=== PATIENT | male | born 1965 | race Caucasian/White ===

== ENCOUNTER → 2017-03-07 | Outpatient (CLI) | payer OTHER, MEDICARE ==
[~2017-03-07] MED LIST: /CLON1TA OR; /VERA40TA PO; ACET500C OR; ACET500T PO; AMIT10TA2; ARTHROTEC; BACL10TA2 PO; CEPH500T OR; FIORICET OR; FLECTOR PATCH; FLEXERIL OR; GABA300C2 PO; HYDROCODONE OR; IBUP200C PO; IBUP600T OR; LYRI150C; LYRI200C; MORP15TA2 PO; MORPHINE SULFATE IR PO; NEUR300C OR; NEXI20CA OR; OXYC40TA13 PO; OXYCONTIN PO; PERC5TAB8; PRAV20TA2 OR; SOMA350T; SOMA350T OR; TOPA25TA PO; TRAM50TA2 OR; VICO5TAB; VICODINES TAB OR; XANA0.5T PO
--- NOTE | 2017-03-22 00:31 | ECWPNPC ---
PATIENT NAME: LESLIE WEST : 1965 GENDER: MALE VISIT DATE: 03/07/2017 DISCHARGE DATE: 03/07/17 1508 VISIT LOCKED DATE TIME: PHYSICIAN: TASHA TUCKER RESOURCE: TASHA TUCKER REASON FOR APPOINTMENT 1. MEDS HISTORY OF PRESENT ILLNESS HISTORY OF PRESENT ILLNESS: PAIN THE PATIENT DESCRIBES THE PAIN... FALL RISK SCREENING: SCREENING :NO FALLS IN THE PAST YEAR TODAY'S VISIT: NOTES: RATES PAIN TODAY 09/02. STATES IS NOT ABLE TO DO ANYTHING. CAN NOT FIND ANY POSITION OF COMFORT. CAN NOT SIT ON TOILET WITHOUT EXTREME SPINE PAIN. PAIN SHOOTS DOWN BOTH LEGS. HAS MOVED INTO [employer] BUT ALL SERVICES ARE DOWN A LONG ESCOBAR. WOULD LIKE TO EXPLORE OPTION FOR POWER SCOOTER FOR MOBILITY. IS FALLING 2-3 TIMES PER MONTH BECAUSE LEGS ARE GIVING OUT. LEGS ARE NUMB, COLD FROM WAIST DOWN. . CURRENT MEDICATIONS TAKING MORPHINE SULFATE 15 MG TABLET 1 TABLET ORALLY EVERY 6-8 HRS PRN PAIN MDD=3 TAKING OXYCODONE HCL ER 30 MG TABLET ER 12 HOUR ABUSE-DETERRENT 1 TABLET ORALLY EVERY 12 HRS MDD =2 CHRONIC PAIN NOT-TAKING OXYCODONE HCL ER 20 MG TABLET ER 12 HOUR ABUSE-DETERRENT 1 TABLET ORALLY EVERY 12 HRS MDD=2 NOT-TAKING MORPHINE SULFATE 15 MG TABLET 1 TAB ORAL EVERY 8 HOURS PRN PAIN MDD=2 MEDICATION LIST REVIEWED AND RECONCILED WITH THE PATIENT PAST MEDICAL HISTORY CHRONIC NECK AND BACK - FOLLOWS WITH PAIN CLINIC ? POSSIBLE MELANOMA POSTERIOR SCALP/NECK IN ?2013 - DR ESCOBAR IN [place]. EXCISED. PT REFUSED FURTHER ADVISED SURGERY AND CHEMO AND RADIATION HTN SMOKER ANXIETY/DEPRESSION LIPOMA - POSTERIOR SCALP/NECK 2013 - DR PERAZA ALLERGIES N.K.D.A. SOCIAL HISTORY GENERAL: PAIN CLINIC PFS, CLERGY, PUBLIC HEALTH REFERRALS CLERGY REFERRAL NEEDED?NO WAS THE PROVIDER NOTIFIED OF ANY PERTINENT INFO?NO PFS REFERRAL NEEDED?NO PUBLIC HEALTH REFERRAL NEEDED?NO PATIENT: ____. REVIEW OF SYSTEMS CONSTITUTIONAL: ANY CHANGE IN YOUR MEDICAL CONDITION? NO . CHILLS NO . FEVER NO . INFECTION: DO YOU HAVE NEW INFECTIONS? NO . DO YOU HAVE HISTORY OF MRSA? NO . MUSCULOSKELETAL: ANY NEW PATTERNS OF PAIN OR NUMBNESS? NO . GASTROENTEROLOGY: ANY NEW CHANGE IN BOWEL CONTROL? NO . GENITOURINARY: ANY NEW CHANGE IN BLADDER CONTROL? NO . IS THERE A CHANCE YOU COULD BE ? NO . HEMATOLOGY/LYMPH: DO YOU TAKE ANY BLOOD THINNERS? (FOR EXAMPLE- COUMADIN, PLAVIX, AGGRENOX, PLATEL, PRADAXA, OR XARELTO) NO . WHEN WAS YOUR LAST DOSE? DATE: TIME: . NEUROLOGY: HAVE YOU FALLEN IN THE PAST 6 MONTHS? YES, 1 WEEK AGO LEGS GIVE OUT. NOT ANY WORSE THAN HE ALREADY IS . ANY NEW EXTREMITY NUMBNESS OR WEAKNESS? NO . CARDIOLOGY: DO YOU HAVE A PACEMAKER OR DEFIBRILLATOR? NO . RESPIRATORY: HAVE YOU BEEN SICK IN THE PAST WEEK? NO . FEVER NO . FLU LIKE SYMPTOMS? NO . COUGH NO . INTEGUMENTARY: DO YOU HAVE ANY RASHES OR OPEN SORES? NO . ALLERGIC/IMMUNO: ARE YOU ALLERGIC TO SHELLFISH OR IV DYE? NO . ANY NEW ALLERGIES? NO . PSYCHIATRIC: DO YOU HAVE THOUGHTS OF HURTING YOURSELF OR SOMEONE ELSE? NO . ARE YOU ABUSED, NEGLECTED, OR IN AN UNSAFE ENVIRONMENT? NO . ENDOCRINOLOGY: ARE YOU DIABETIC? NO . OTHER: DO YOU NEED ANY PRESCRIPTIONS? YES . IF YES, PLEASE LIST: ____ . ANY NEW PROBLEMS WITH YOUR MEDICATIONS? NO . WHEN DID YOU LAST EAT? ____ . WHEN DID YOU LAST DRINK? ____ . WHAT DID YOU LAST DRINK? ____ . NAME OF PERSON DRIVING YOU HOME? ____ . DO YOU HAVE ANY OTHER QUESTIONS OR CONCERNS NO . REVIEWED BY: PROVIDER: TASHA MULTANI . VITAL SIGNS WT 140 LBS, HT 71 IN, BMI 19.52 INDEX, BP 120/80 MANUAL, HR 119 /MIN, RR 16 /MIN, TEMP 99.3 F, OXYGEN SAT % 95%, NA INITIALS AW 1357, REVIEWED BY: NL. EXAMINATION GENERAL EXAMINATION: GENERAL APPEARANCE:COLOR PINK - WARM AND DRY SKIN. PSYCHALERT , ORIENTED X 3 , APPROPRIATE MOOD AND AFFECT . LUNGS:CLEAR TO AUSCULTATION BILATERALLY. HEART:HEART RATE REGULAR. MUSCULOSKELETAL:GENERALIZED WEAKNESS IN BOTH LOWER EXTREMITIES. POINT TENDERNESS OVER LUMBAR SPINOUS PROCESSES AND OVER BILATERAL SIJ REGIONS. GAIT ANTALGIC, SLOW. LOFSTRAND CRUTCHES USED FOR BALANCE. ASSESSMENTS LUMBAR POST-LAMINECTOMY SYNDROME - M96.1 (PRIMARY) LUMBAR RADICULOPATHY - M54.16 CHRONIC PRESCRIPTION OPIATE USE - Z79.891 TREATMENT LUMBAR POST-LAMINECTOMY SYNDROME NOTES: UTOX TODAY. NEED TO WORK ON AUTH FROM FOR MRI. CLINICAL NOTES: ISTOP REGISTRY REVIEWED AND DEMNOSTRATES COMPLLIANCE. BRINGS IN MEDICATIONS WHICH IS APPROPRIATE FOR WHAT WAS DISPENSED. RECENT URINE TOXICOLOGY REVIEWED. NO UNAUTHORIZED MEDICATIONS. NO ILLICIT SUBSTANCES AND PRESCRIBED MEDICATIONS WERE PRESENT. DISCUSSION HELD WITH PATIENT REGARDING FUTURE PLANS. PT IS VERY FEARFUL OF ANY INTERVENTIONAL TREATMENT. DISCUSSED OPTION OF DORSAL COLUMN STIMULATOR BUT PATIENT IS ALSO VERY FEARFUL OF THIS OPTION. PROCEDURES PN WORKMANS' COMP OPINION IN YOUR OPINION, WAS THE INCIDENT THAT THE PATIENT DESCRIBED THE COMPETENT MEDICAL CAUSE OF THIS INJURY/ILLNESS? YES ARE THE PATIENT'S COMPLAINTS CONSISTENT WITH HIS/HER HISTORY OF THE INJURY/ILLNESS? YES IS THE PATIENT'S HISTORY OF THE INJURY/ILLNESS CONSISTENT WITH YOUR OBJECTIVE FINDING? YES WHAT IS THE PERCENTAGE OF TEMPORARY IMPAIRMENT? TOTAL = 100% IS THE PATIENT WORKING? NO DOCTOR ON SITE: SUSIE AVILEZ MD PROCEDURE CODES FA211 ESTABILISHED PATIENT [facility] FACILITY CHARGE DISPOSITION & COMMUNICATION FOLLOW UP 2 MONTHS - WITH DR WILSON ELECTRONICALLY SIGNED BY DHRUV LIN ON 03/21/2017 AT 01:15 PM EDT DISCLAIMER : THIS IS A VISIT SUMMARY EXTRACTED FROM THE [employer] CHART. IT IS NOT A COPY OF THE [employer] PROGRESS NOTE. MCKENZIE
== END ==
LOC: M PAIN 14:00
PROVIDERS: ATTEND Nurse Practitioner Family
DX: M96.1 Postlaminectomy syndrome, not elsewhere classified (principal); M54.16 Radiculopathy, lumbar region; G89.29 Other chronic pain; R26.9 Unspecified abnormalities of gait and mobility; Z79.891 Long term (current) use of opiate analgesic

== ENCOUNTER → 2017-05-29 | Outpatient (CLI) | payer OTHER, MEDICARE ==
[~2017-05-29] MED LIST changes: -IBUP200C PO; +IBUP200C10 PO; -OXYC40TA13 PO; +OXYC40TA29 PO
--- NOTE | 2017-06-10 00:56 | ECWPNPC ---
PATIENT NAME: LESLIE WEST : 1965 GENDER: MALE VISIT DATE: 05/29/2017 DISCHARGE DATE: 05/29/17 1558 VISIT LOCKED DATE TIME: PHYSICIAN: SUSIE WILSON RESOURCE: SUSIE WILSON REASON FOR APPOINTMENT 1. W/C LOW BACK PAIN HISTORY OF PRESENT ILLNESS HISTORY OF PRESENT ILLNESS: PAIN THE PATIENT DESCRIBES THE PAIN... 51 YEAR OLD MALE PATIENT WITH HISTORY OF CHRONIC LOW BACK PAIN. PATIENT DESCRIBES THE PAIN ACHING, BURNING, SHARP, STABBING, TENDER, THROBBING, SORE, SHOOTING, AND HAVING IT ALL THE TIME WITH A PAIN SCORE OF 10/10. PATIENT WAS HURT IN A WORK RELATED INJURY ON 05/28/2007 WHILE WORKING AT [employer] WHEN HE FELL DOWN STAIRS. PATIENT REPORTS PHYSICAL THERAPY NOT AIDING IN PAIN RELIEF. MR. WEST REPORTS ONE BACK SURGERY IN 2007. CURRENTLY THE PATIENT IS USING OXYCODONE AND MORPHINE AND REPORTS THAT THE MEDICATIONS KEEP HIM MOBILE AND FUNCTIONAL. PATIENT STATES THAT IT IS VERY DIFFICULT FOR HIM TO DO EVERYDAY ACTIVITIES DUE TO THE PAIN. PATIENT DENIES UNEXPLAINABLE WEIGHT LOSS, FEVER, CHILLS, NEW CHANGES ON HIS URINARY OR BOWEL CONTROL. FALL RISK SCREENING: SCREENING :NO FALLS IN THE PAST YEAR CURRENT MEDICATIONS TAKING OXYCODONE HCL ER 30 MG TABLET ER 12 HOUR ABUSE-DETERRENT 1 TABLET ORALLY EVERY 12 HRS MDD =2 CHRONIC PAIN TAKING MORPHINE SULFATE 15 MG TABLET 1 TABLET ORALLY EVERY 6-8 HRS PRN PAIN MDD=3 TAKING ACETAMINOPHEN EXTRA STRENGTH 500 MG TABLET 2 TABLETS NEEDED ORALLY EVERY 6 HRS NOT-TAKING OXYCODONE HCL ER 20 MG TABLET ER 12 HOUR ABUSE-DETERRENT 1 TABLET ORALLY EVERY 12 HRS MDD=2 NOT-TAKING MORPHINE SULFATE 15 MG TABLET 1 TAB ORAL EVERY 8 HOURS PRN PAIN MDD=2 MEDICATION LIST REVIEWED AND RECONCILED WITH THE PATIENT PAST MEDICAL HISTORY CHRONIC NECK AND BACK - FOLLOWS WITH PAIN CLINIC ? POSSIBLE MELANOMA POSTERIOR SCALP/NECK IN ?2014 - DR ESCOBAR IN [place]. EXCISED. PT REFUSED FURTHER ADVISED SURGERY AND CHEMO AND RADIATION HTN SMOKER ANXIETY/DEPRESSION LIPOMA - POSTERIOR SCALP/NECK 2014 - DR PERAZA ALLERGIES N.K.D.A. REVIEW OF SYSTEMS REVIEWED BY: PROVIDER: SUSIE WILSON MD . CONSTITUTIONAL: ANY CHANGE IN YOUR MEDICAL CONDITION? NO . CHILLS NO . FEVER NO . INFECTION: DO YOU HAVE NEW INFECTIONS? NO . DO YOU HAVE HISTORY OF MRSA? NO . MUSCULOSKELETAL: ANY NEW PATTERNS OF PAIN OR NUMBNESS? NO . GASTROENTEROLOGY: ANY NEW CHANGE IN BOWEL CONTROL? NO . GENITOURINARY: ANY NEW CHANGE IN BLADDER CONTROL? NO . IS THERE A CHANCE YOU COULD BE ? NO . HEMATOLOGY/LYMPH: DO YOU TAKE ANY BLOOD THINNERS? (FOR EXAMPLE- COUMADIN, PLAVIX, AGGRENOX, PLATEL, PRADAXA, OR XARELTO) NO . WHEN WAS YOUR LAST DOSE? DATE: TIME: . NEUROLOGY: HAVE YOU FALLEN IN THE PAST 6 MONTHS? YES . ANY NEW EXTREMITY NUMBNESS OR WEAKNESS? NO . CARDIOLOGY: DO YOU HAVE A PACEMAKER OR DEFIBRILLATOR? NO . RESPIRATORY: HAVE YOU BEEN SICK IN THE PAST WEEK? NO . FEVER NO . FLU LIKE SYMPTOMS? NO . COUGH NO . INTEGUMENTARY: DO YOU HAVE ANY RASHES OR OPEN SORES? NO . ALLERGIC/IMMUNO: ARE YOU ALLERGIC TO SHELLFISH OR IV DYE? NO . ANY NEW ALLERGIES? NO . PSYCHIATRIC: DO YOU HAVE THOUGHTS OF HURTING YOURSELF OR SOMEONE ELSE? NO . ARE YOU ABUSED, NEGLECTED, OR IN AN UNSAFE ENVIRONMENT? NO . ENDOCRINOLOGY: ARE YOU DIABETIC? NO . OTHER: DO YOU NEED ANY PRESCRIPTIONS? NO . IF YES, PLEASE LIST: ____ . ANY NEW PROBLEMS WITH YOUR MEDICATIONS? NO . WHEN DID YOU LAST EAT? ____ . WHEN DID YOU LAST DRINK? ____ . WHAT DID YOU LAST DRINK? ____ . NAME OF PERSON DRIVING YOU HOME? ____ . DO YOU HAVE ANY OTHER QUESTIONS OR CONCERNS NO . VITAL SIGNS WT 122.2 LBS, HT 71 IN, BMI 17.04 INDEX, BP 130/90 MANAUL, HR 82 /MIN, RR 16 /MIN, TEMP 97.5 F, OXYGEN SAT % 97, NA INITIALS SC 14:40, REVIEWED BY: CM. EXAMINATION : PATIENT IS ALERT O X 3 AND COOPERATIVE. USES WALKER TO AMBULATE. DIFFICULTIES STANDING, SITTING, AND LAYING DOWN. BOTH LEGS ARE VERY WEAK. MOVING INCREASES SPASTICITY IN THE LOWER BACK. ASSESSMENTS LUMBAR POST-LAMINECTOMY SYNDROME - M96.1 (PRIMARY) RADICULOPATHY, LUMBAR REGION - M54.16 TREATMENT LUMBAR POST-LAMINECTOMY SYNDROME REFILL OXYCODONE HCL ER TABLET ER 12 HOUR ABUSE-DETERRENT, 30 MG, 1 TABLET, ORALLY, EVERY 12 HRS MDD =2 CHRONIC PAIN, 30 DAY(S), 60, REFILLS 0 NOTES: WE DISCUSSED SEVERAL ISSUES WITH MR. WEST'S PAIN MANAGEMENT CASE. AT THIS TIME THE PATIENT WILL CONTINUE WITH THE SAME MEDICATION REGIME BEFORE. PATIENT IS USING THE OXYCODONE, MORPHINE AND ACETAMINOPHEN FOR THE SOMATIC PAIN. PATIENT DENIES ABUSE OF MEDICATION, DENIES USE OF ILLEGAL SUBSTANCES, AND STATES HE IS ONLY USING THE MEDICATION FOR PAIN MANAGEMENT. URINE TOXICOLOGY REPORT DONE ON 03/07/17 SHOWS CONSISTENT RESULTS WITH THE PATIENT'S MEDICATION LIST. PATIENT WAS REMINDED TO BRING ALL MEDICATIONS TO EACH VISIT. I WOULD LIKE THE PATIENT TO FIND A PRIMARY CARE DOCTOR TO DISCUSS THE POSSIBILITY OF A TUMOR IN THE PATIENTS NECK. INSTRUCTIONS WERE GIVEN, QUESTIONS WERE ANSWERED, PATIENT REPORTS UNDERSTANDING AND AGREES WITH THE PLAN. I, SANDRA WARREN, DOCUMENTED THE ABOVE INFORMATION ACTING A SCRIBE FOR DR. WILSON. I HAVE REVIEWED THE ABOVE DOCUMENT, WRITTEN BY SANDRA LEE AND I VERIFY THAT IT IS ACCURATE. OTHERS REFILL MORPHINE SULFATE TABLET, 15 MG, 1 TABLET, ORALLY, EVERY 6-8 HRS PRN PAIN MDD=3, 30 DAY(S), 60, REFILLS 0 REFILL ACETAMINOPHEN EXTRA STRENGTH TABLET, 500 MG, 2 TABLETS NEEDED, ORALLY FOR PAIN, EVERY 6 HRS MDD6, 30 DAY(S), 180, REFILLS 1 PROCEDURES PN WORKMANS' COMP OPINION IN YOUR OPINION, WAS THE INCIDENT THAT THE PATIENT DESCRIBED THE COMPETENT MEDICAL CAUSE OF THIS INJURY/ILLNESS? YES ARE THE PATIENT'S COMPLAINTS CONSISTENT WITH HIS/HER HISTORY OF THE INJURY/ILLNESS? YES IS THE PATIENT'S HISTORY OF THE INJURY/ILLNESS CONSISTENT WITH YOUR OBJECTIVE FINDING? YES WHAT IS THE PERCENTAGE OF TEMPORARY IMPAIRMENT? TOTAL = 100% IS THE PATIENT WORKING? NO DOCTOR ON SITE: SUSIE AVILEZ MD PROCEDURE CODES FA211 ESTABILISHED PATIENT [facility] FACILITY CHARGE G8427 DOC MEDS VERIFIED W/PT OR RE G8730 PAIN ASSESS POS TOOL F/U PLAN DOC DISPOSITION & COMMUNICATION FOLLOW UP 3 WEEKS ELECTRONICALLY SIGNED BY SUSIE WILSON MD ON 06/09/2017 AT 08:54 PM EDT DISCLAIMER : THIS IS A VISIT SUMMARY EXTRACTED FROM THE [employer] CHART. IT IS NOT A COPY OF THE [employer] PROGRESS NOTE. MTDD
== END ==
LOC: M PAIN 14:20
PROVIDERS: ATTEND Anesthesiology
DX: G89.29 Other chronic pain (principal); M96.1 Postlaminectomy syndrome, not elsewhere classified; M54.16 Radiculopathy, lumbar region; M54.2 Cervicalgia; Z79.891 Long term (current) use of opiate analgesic

== ENCOUNTER → 2017-10-20 | Outpatient (REF) ==
--- NOTE | 2017-10-20 14:36 | REP ---
PARTIAL LUMBAR SPINE, THREE VIEWS: HISTORY: Degenerative disc disease. COMPARISON: 07/03/2007. The patient is status post L5-S1 anterior and posterior spinal fusion and L4-5 laminectomy. Bone graft material is present anteriorly and metal rods and pedicle screws posteriorly. There is no acute fracture or subluxation. The intervertebral discs are decreased in height consistent with disc degeneration. Osteophytes are present on L1 and 2. IMPRESSION: The patient is status post L5-S1 anterior and posterior spinal fusion and L4-5 laminectomy. There is anatomic alignment of the lumbar spine. Signed by Tay Dickson MD 10/20/2017 02:39 P
== END ==
LOC: M SMT 13:04
PROVIDERS: ATTEND Internal Medicine
DX: M51.36 Other intervertebral disc degeneration, lumbar region (principal)

== ENCOUNTER → 2017-11-06 | Outpatient (CLI) | payer OTHER, MEDICARE | LOC: M PAIN 14:15 | DX: M96.1 Postlaminectomy syndrome, not elsewhere classified (principal); M54.16 Radiculopathy, lumbar region; Z79.891 Long term (current) use of opiate analgesic; I10 Essential (primary) hypertension; R26.9 Unspecified abnormalities of gait and mobility; Z79.899 Other long term (current) drug therapy; F17.210 Nicotine dependence, cigarettes, uncomplicated | CPT/HCPCS: G0463 ==

== ENCOUNTER 2017-11-21 11:11 | Emergency (ER) | payer MEDICARE, OTHER ==
[2017-11-21] MEDS: IPRATROPIUM 0.5MG/ALBUTEROL 2.5MG INH SOL UD 3ML (DUONEB)(J7620) NEB ×2 (11:54→12:04)
[2017-11-21 11:55] LABS: ABG BASE EXCESS -2.8 (-2.0-2.0); ABG HCO3 19.1 MEQ/L (22.0-26.0); ABG PARTIAL PRESSURE CO2 26.9 mmHg (35.0-45.0); ABG PARTIAL PRESSURE O2 96.2 mmHg (75.0-100.0); ABG STANDARD HCO3 22.2 MEQ/L (22.0-26.0); ABG TOTAL CO2 19.9 MEQ/L (22.0-29.0); ABG pH (ARTERIAL) 7.469 UNITS (7.350-7.450)
[2017-11-21 12:03] LABS: BASO % 0.3 % (0.0-1.0); EOS # 0.2 10^3/uL (0.0-0.50); EOS % 2.2 % (0.0-3.0); IMMATURE GRANULOCYTE % 0.5 % (0-0); LYMPH # 1.1 10^3/uL (1.5-4.5); LYMPH % 12.8 % (24.0-44.0); MEAN CORPUSCULAR HEMOGLOBIN 32.8 pg (27.0-33.0); MEAN CORPUSCULAR HGB CONC 34.7 g/dl (32.0-36.5); MEAN CORPUSCULAR VOLUME 94.6 fl (80.0-96.0); MONO # 0.4 10^3/uL (0.0-0.8); MONO % 4.7 % (0.0-5.0); NEUTROPHILS % 79.5 % (36.0-66.0); PLATELET COUNT, AUTOMATED 151 10^3/uL (150-450); RED CELL DISTRIBUTION WIDTH 13.2 % (11.5-14.5); WHITE BLOOD COUNT 8.8 10^3/uL (4.0-10.0)
[2017-11-21] MEDS: methylPREDNISolone INJ 125 MG/2 ML VIAL (J2930) IV (12:06)
[2017-11-21 12:17] LABS: INR 0.92
[2017-11-21 12:35] LABS: LACTIC ACID SEPSIS PROTOCOL 1.9 MMOL/L (0.4-2.0)
[2017-11-21 12:35] LABS: ANION GAP 11 MEQ/L (8-16); BLOOD UREA NITROGEN 10 MG/DL (7-18); CALCIUM LEVEL 8.8 MG/DL (8.5-10.1); CARBON DIOXIDE LEVEL 25 MEQ/L (21-32); CHLORIDE LEVEL 108 MEQ/L (98-107); CREATININE FOR GFR 0.93 MG/DL (0.70-1.30); GLOMERULAR FILTRATION RATE > 60.0 (>56); GLUCOSE, FASTING 95 MG/DL (70-105); POTASSIUM SERUM 3.8 MEQ/L (3.5-5.1); SODIUM LEVEL 144 MEQ/L (136-145)
[2017-11-21 12:38] LABS: ALBUMIN 3.3 GM/DL (3.2-5.2); ALKALINE PHOSPHATASE 54 U/L (45-117); ALT/SGPT 20 U/L (12-78); AST/SGOT 23 U/L (7-37); BILIRUBIN,DIRECT 0.2 MG/DL (0.0-0.2); BILIRUBIN,TOTAL 0.9 MG/DL (0.2-1.0); TOTAL PROTEIN 6.3 GM/DL (6.4-8.2)
[2017-11-21] MEDS ORDERED: ISOVUE-370 76% 100ML VIAL (Q9967) As Ordered (13:16)
[2017-11-21] MEDS: PERCOCET 5MG/325MG TAB PO (14:30)
== END 2017-11-21 15:30 | disposition home or self-care (01) ==
LOC: M ED 11:11
DX: J44.9 Chronic obstructive pulmonary disease, unspecified (principal); J40 Bronchitis, not specified as acute or chronic; R26.9 Unspecified abnormalities of gait and mobility; R53.1 Weakness; G89.29 Other chronic pain; M54.9 Dorsalgia, unspecified; G43.909 Migraine, unspecified, not intractable, without status migrainosus; Z88.5 Allergy status to narcotic agent; Z88.8 Allergy status to other drugs, medicaments and biological substances; F17.210 Nicotine dependence, cigarettes, uncomplicated
CPT/HCPCS: Q9967

== ENCOUNTER → 2018-06-23 | Outpatient (CLI) | payer OTHER, MEDICARE | LOC: M PAIN 14:15 | DX: M96.1 Postlaminectomy syndrome, not elsewhere classified (principal); M54.16 Radiculopathy, lumbar region; G89.29 Other chronic pain; R26.9 Unspecified abnormalities of gait and mobility; I10 Essential (primary) hypertension; F41.9 Anxiety disorder, unspecified; F32.9 Major depressive disorder, single episode, unspecified; F17.200 Nicotine dependence, unspecified, uncomplicated | CPT/HCPCS: G0463 ==

== ENCOUNTER → 2018-07-21 | Outpatient (CLI) | payer OTHER, MEDICARE | LOC: M PAIN 14:00 | DX: M96.1 Postlaminectomy syndrome, not elsewhere classified (principal); M54.16 Radiculopathy, lumbar region; G89.29 Other chronic pain; R26.9 Unspecified abnormalities of gait and mobility; I10 Essential (primary) hypertension; F41.9 Anxiety disorder, unspecified; F32.9 Major depressive disorder, single episode, unspecified; F40.240 Claustrophobia; F17.200 Nicotine dependence, unspecified, uncomplicated; Z79.899 Other long term (current) drug therapy; Z86.018 Personal history of other benign neoplasm; Z91.81 History of falling | CPT/HCPCS: G0463 ==

== ENCOUNTER → 2018-09-16 | Outpatient (CLI) | payer OTHER, MEDICARE | LOC: M PAIN 14:00 | DX: M96.1 Postlaminectomy syndrome, not elsewhere classified (principal); M54.5 Low back pain; M79.18 Myalgia, other site; I10 Essential (primary) hypertension; F41.9 Anxiety disorder, unspecified; F32.9 Major depressive disorder, single episode, unspecified; Z72.0 Tobacco use; Z79.899 Other long term (current) drug therapy; Z92.3 Personal history of irradiation | CPT/HCPCS: G0463 ==

== ENCOUNTER → 2018-12-28 | Outpatient (CLI) | payer OTHER, MEDICARE ==
[~2018-12-28] MED LIST changes: +ALBU83IN INH; +CEFT500T3 PO; +FULLMIS XX; -IBUP200C10 PO; +IBUP200C25 PO; +PRED20TA PO; +ROLLMIS2 XX
--- NOTE | 2019-01-09 23:34 | ECWPNPC ---
PATIENT NAME: LESLIE WEST : 1965 GENDER: MALE VISIT DATE: 12/28/2018 DISCHARGE DATE: 12/28/18 1405 VISIT LOCKED DATE TIME: PHYSICIAN: SUSIE WILSON MD PHYSICIAN PAGER NO: INACTIVE RESOURCE: SUSIE WILSON MD REASON FOR APPOINTMENT 1. W/C LOW BACK HISTORY OF PRESENT ILLNESS HISTORY OF PRESENT ILLNESS: PAIN THE PATIENT DESCRIBES THE PAIN... 53 YEAR OLD MALE PATIENT WITH A HISTORY OF CHRONIC LOW BACK PAIN. THE PATIENT DESCRIBES THE PAIN ACHING, BURNING, SORE, TENDER, SHARP, STABBING, SHOOTING, AND CONTINUOUS WITH A PAIN SCORE OF 10/10. 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 THE PATIENT SAYS THE PAIN STARTS IN HIS LOW BACK AREA AND RADIATES DOWN BOTH OF HIS LEGS. THE PATIENT SAYS HE HAS DIFFICULTY DOING ANY KIND OF ACTIVITY SUCH WALKING, COOKING, AND CLEANING DUE TO THIS PAIN. THE PATIENT TRIED USING CYMBALTA, BUT SAYS HE EXPERIENCED ADVERSE SIDE EFFECTS TO IT. THE PATIENT WAS ALSO USING GABAPENTIN, BUT STATES THAT IT MADE HIM FEEL "JITTERY" AND AWAKE. THE PATIENT SAYS THAT USING IBUPROFEN CAUSED HIM TO HAVE AN UPSET STOMACH. PATIENT DENIES UNEXPLAINABLE WEIGHT LOSS, FEVER, CHILLS, NEW CHANGES ON HIS URINARY OR BOWEL CONTROL. FALL RISK SCREENING: SCREENING :NO FALLS IN THE PAST YEAR CURRENT MEDICATIONS TAKING ACETAMINOPHEN EXTRA STRENGTH 500 MG TABLET 2 TABLETS NEEDED ORALLY FOR PAIN EVERY 6 HRS MDD6 TAKING GABAPENTIN 300 MG CAPSULE 1 CAPSULE ORALLY THREE TIMES DAILY NOT-TAKING DULOXETINE HCL 30 MG CAPSULE DELAYED RELEASE PARTICLES 1 CAPSULE ORALLY BID NOT-TAKING IBUPROFEN 600 MG TABLET 1 TABLET WITH FOOD OR MILK NEEDED ORALLY THREE TIMES A DAY NOT-TAKING VALIUM 5 MG TABLET 1 TABLET NEEDED ORALLY TAKE 1 TAB 1 HR BEFORE MRI AND 1 TABE ON ARRIVAL. MDD-2 NOT-TAKING BUPRENORPHINE HCL 300 MCG FILM 1 FILM TO THE GUM BUCALLY EVERY 12 HRS FOR CHRONIC PAIN MDD-2 NOT-TAKING BELBUCA 300 MCG 300 MCG FILM 1 FILM BUCCAL Q12H MDD=2 MEDICATION LIST REVIEWED AND RECONCILED WITH THE PATIENT PAST MEDICAL HISTORY CHRONIC NECK AND BACK - FOLLOWS WITH PAIN CLINIC ? POSSIBLE MELANOMA POSTERIOR SCALP/NECK IN ?2014 - DR ESCOBAR IN [place]. EXCISED. PT REFUSED FURTHER ADVISED SURGERY AND CHEMO AND RADIATION HTN SMOKER ANXIETY/DEPRESSION LIPOMA - POSTERIOR SCALP/NECK 2013 - DR PERAZA ALLERGIES N.K.D.A. SURGICAL HISTORY NECK MELANOMA EXCISION 2012 L5-S1 FUSION - DR MURPHY 2007 RIGHT INGUINAL HERNIA REPAIR X 2 - DR RIBEIRO 1999S HEMORRHOID SURGERY - DR RIBEIRO RECTAL PROLAPSE - DR RIBEIRO 1999S FAMILY HISTORY FATHER: 54 YRS, DIAGNOSED WITH CANCER MOTHER: 56 YRS, DIAGNOSED WITH HEART DISEASE 2 BROTHER(S) , 2 SISTER(S) . 2DAUGHTER(S) - HEALTHY. 1 BROTHER FROM HEART ATTACK. SOCIAL HISTORY GENERAL: TOBACCO USE ARE YOU A:CURRENT SMOKER ARE YOU INTERESTED IN QUITTING?NOT READY TO QUIT COUNSELED THE PATIENT ON SMOKING EFFECTS, EDUCATION [id number]/04/2019 PATIENT COUNSELED ON THE DANGERS OF TOBACCO USE AND URGED TO QUIT:12/28/2018 ALCOHOL SCREENING DID YOU HAVE A DRINK CONTAINING ALCOHOL IN THE PAST YEAR?YES HOW OFTEN DID YOU HAVE A DRINK CONTAINING ALCOHOL IN THE PAST YEAR?FOUR OR MORE TIMES A WEEK (4 POINTS) HOW MANY DRINKS DID YOU HAVE ON A TYPICAL DAY WHEN YOU WERE DRINKING IN THE PAST YEAR?3 OR 4 (1 POINT) HOW OFTEN DID YOU HAVE SIX OR MORE DRINKS ON ONE OCCASION IN THE PAST YEAR?NEVER (0 POINTS) POINTS5 INTERPRETATIONPOSITIVE RECREATIONAL DRUG USE DRUG USE?NO TEMPLE [id number] OTHER LANGUAGE LANGUAGES SPOKEN:LAO EDUCATION LEVEL OF EDUCATION:FINISHED HIGH SCHOOL OCCUPATION: DISABLED. DIET: REGULAR. EXERCISE: NONE. MARITAL STATUS: . OTHERS AT HOME: NONE. PAIN CLINIC PFS, CLERGY, PUBLIC HEALTH REFERRALS PFS REFERRAL NEEDED?NO CLERGY REFERRAL NEEDED?NO PUBLIC HEALTH REFERRAL NEEDED?NO WAS THE PROVIDER NOTIFIED OF ANY PERTINENT INFO?NO HAS THE PATIENT BEEN EDUCATED REGARDING HIS/HER PLAN OF CARE?YES HAS THE PATIENT BEEN EDUCATED REGARDING PAIN, THE RISK FOR PAIN, THE IMPORTANCE OF EFFECTIVE PAIN MANAGEMENT, AND THE PAIN ASSESSMENT PROCESS?YES HOUSING: RENTS APARTMENT. ADVANCE DIRECTIVE ADVANCE DIRECTIVE DISCUSSED WITH PATIENT:YES PT. DECLINES INFORMATION HOSPITALIZATION/MAJOR DIAGNOSTIC PROCEDURE SURGERY RELATED REVIEW OF SYSTEMS REVIEWED BY: PROVIDER: SUSIE WILSON MD . CONSTITUTIONAL: ANY CHANGE IN YOUR MEDICAL CONDITION? NO . CHILLS NO . FEVER NO . INFECTION: DO YOU HAVE NEW INFECTIONS? YES, ROTTED WISDOM TOOTH X 3 MOS AGO. PT STATES HE WENT TO [facility] AND HE WAS REFERRED TO SOMEONE ELSE-NAME? PT STATES HE WAS CHARGED $150 FOR REFERRAL AND WOULD BE FACING $500-600 TO [place]DOM [place], WHICH PT CAN'T AFFORD, SO HE DIDN'T GO. . DO YOU HAVE HISTORY OF MRSA? NO . MUSCULOSKELETAL: ANY NEW PATTERNS OF PAIN OR NUMBNESS? NO . GASTROENTEROLOGY: ANY NEW CHANGE IN BOWEL CONTROL? NO . GENITOURINARY: ANY NEW CHANGE IN BLADDER CONTROL? NO . IS THERE A CHANCE YOU COULD BE ? NO . HEMATOLOGY/LYMPH: DO YOU TAKE ANY BLOOD THINNERS? (FOR EXAMPLE- COUMADIN, PLAVIX, AGGRENOX, PLATEL, PRADAXA, OR XARELTO) NO . WHEN WAS YOUR LAST DOSE? DATE: TIME: . NEUROLOGY: HAVE YOU FALLEN IN THE PAST 12 MONTHS? YES, FELL 2 WEEKS AGO FROM PAIN AND WEAKNESS, PT STATES HE INJURED LEFT SHOULDER, PT DID NOT SEEK MEDICAL TX FOR INJURY . ANY NEW EXTREMITY NUMBNESS OR WEAKNESS? NO . CARDIOLOGY: DO YOU HAVE A PACEMAKER OR DEFIBRILLATOR? NO . RESPIRATORY: HAVE YOU BEEN SICK IN THE PAST WEEK? YES . FEVER NO . FLU LIKE SYMPTOMS? NO . COUGH YES, YELLOW PRODUCTIVE MUCOUS X 2 MOS . INTEGUMENTARY: DO YOU HAVE ANY RASHES OR OPEN SORES? NO . ALLERGIC/IMMUNO: ARE YOU ALLERGIC TO IV DYE? NO . ANY NEW ALLERGIES? NO . PSYCHIATRIC: DO YOU HAVE THOUGHTS OF HURTING YOURSELF OR SOMEONE ELSE? NO . ARE YOU ABUSED, NEGLECTED, OR IN AN UNSAFE ENVIRONMENT? NO . ENDOCRINOLOGY: ARE YOU DIABETIC? NO . OTHER: DO YOU NEED ANY PRESCRIPTIONS? NO . IF YES, PLEASE LIST: ____ . ANY NEW PROBLEMS WITH YOUR MEDICATIONS? YES, IBUPROPHEN NOT WORKING, UPSETTING STOMACH [employer] HE TAKES IT W FOOD/MILK . WHEN DID YOU LAST EAT? ____ . WHEN DID YOU LAST DRINK? ____ . WHAT DID YOU LAST DRINK? ____ . NAME OF PERSON DRIVING YOU HOME? ____ . DO YOU HAVE ANY OTHER QUESTIONS OR CONCERNS NO . VITAL SIGNS WT 130 LBS, HT 71 IN, BMI 18.13 INDEX, BP 1160/90 MM HG, HR 87 /MIN, RR 16 /MIN, TEMP 98.9 F, OXYGEN SAT % 98, REVIEWED BY: EM1. EXAMINATION GENERAL EXAMINATION: PATIENT IS ALERT O X 3 AND COOPERATIVE. PATIENT IS USING A CANE TO AMBULATE. ANTALGIC GAIT. MRI OF THE LUMBAR SPINE DONE ON 08/12/2018 SHOWS POST LAMINECTOMY CHANGES. ASSESSMENTS LUMBAR POST-LAMINECTOMY SYNDROME - M96.1 (PRIMARY) LUMBAR RADICULOPATHY - M54.16 TREATMENT LUMBAR POST-LAMINECTOMY SYNDROME REFILL BUPRENORPHINE HCL FILM, 300 MCG, 1 FILM TO THE GUM, BUCALLY, EVERY 12 HRS FOR CHRONIC PAIN MDD-2, 30 DAY(S), 60, REFILLS 0 START BUTRANS PATCH WEEKLY, 5 MCG/HR, 1 PATCH TO SKIN, TRANSDERMAL, 1 PER WEEK, 30 DAY(S), 4, REFILLS 0 CLINICAL NOTES: WE DISCUSSED SEVERAL ISSUES WITH MR. WEST'S PAIN MANAGEMENT CASE. THE PATIENT WILL USE 100MG OF GABAPENTIN 3 TIMES PER DAY, SO HE IS NOT USING MUCH AT ONCE. I WILL START THE PATIENT ON CELEBREX SINCE IBUPROFEN UPSET HIS STOMACH. THE PATIENT WILL ALSO START USING BUTRANS PATCH FOR SEVERE PAIN AND WILL USE 1 PATCH PER WEEK. THE PATIENT WILL SIGN A NARCOTIC AGREEMENT TODAY. I WILL REQUEST AN INTERFERENTIAL TENS UNIT WELL. THE PATIENT WILL FOLLOW UP IN 1 MONTH. INSTRUCTIONS WERE GIVEN, QUESTIONS WERE ANSWERED, PATIENT REPORTS UNDERSTANDING AND AGREES WITH THE PLAN. I, AYUSH CHAUDHRY, DOCUMENTED THE ABOVE INFORMATION ACTING A SCRIBE FOR DR. WILSON. I HAVE REVIEWED THE ABOVE DOCUMENT, WRITTEN BY AYUSH LEE AND I VERIFY THAT IT IS ACCURATE. OTHERS REFILL GABAPENTIN CAPSULE, 100 MG, 1 CAPSULE, ORALLY, THREE TIMES DAILY, 30 DAY(S), 90, REFILLS 1 START CELEBREX CAPSULE, 200 MG, 1 CAPSULE WITH FOOD, ORALLY, ONCE A DAY, 30 DAY(S), 30, REFILLS 0 PROCEDURES PN WORKMANS' COMP OPINION IN YOUR OPINION, WAS THE INCIDENT THAT THE PATIENT DESCRIBED THE COMPETENT MEDICAL CAUSE OF THIS INJURY/ILLNESS? YES ARE THE PATIENT'S COMPLAINTS CONSISTENT WITH HIS/HER HISTORY OF THE INJURY/ILLNESS? YES IS THE PATIENT'S HISTORY OF THE INJURY/ILLNESS CONSISTENT WITH YOUR OBJECTIVE FINDING? YES WHAT IS THE PERCENTAGE OF TEMPORARY IMPAIRMENT? TOTAL = 100% IS THE PATIENT WORKING? NO DOCTOR ON SITE: SUSIE AVILEZ MD PROCEDURE CODES FA211 ESTABILISHED PATIENT [facility] FACILITY CHARGE G8427 CURRENT MEDS W/DOSAGES DOCUMENTED G8730 PAIN ASSESS POS TOOL F/U PLAN DOC DISPOSITION & COMMUNICATION FOLLOW UP 4 WEEKS (REASON: W/C LOW BACK) ELECTRONICALLY SIGNED BY SUSIE WILSON MD, MD ON 01/09/2019 AT 06:09 PM EST DISCLAIMER : THIS IS A VISIT SUMMARY EXTRACTED FROM THE [employer] CHART. IT IS NOT A COPY OF THE [employer] PROGRESS NOTE. MTDD
== END ==
LOC: M PAIN 12:30
PROVIDERS: ATTEND Anesthesiology
DX: M96.1 Postlaminectomy syndrome, not elsewhere classified (principal); M54.16 Radiculopathy, lumbar region; I10 Essential (primary) hypertension; F41.9 Anxiety disorder, unspecified; F32.9 Major depressive disorder, single episode, unspecified; F17.210 Nicotine dependence, cigarettes, uncomplicated; Z79.899 Other long term (current) drug therapy

== ENCOUNTER → 2019-02-18 | Outpatient (CLI) | payer OTHER, MEDICARE ==
[~2019-02-18] MED LIST changes: -/CLON1TA OR; -/VERA40TA PO; +CLON-412 OR; +VERA1TAB23 PO
--- NOTE | 2019-03-10 01:25 | ECWPNPC ---
PATIENT NAME: LESLIE WEST : 1965 GENDER: MALE VISIT DATE: 02/18/2019 DISCHARGE DATE: 02/18/19 1318 VISIT LOCKED DATE TIME: PHYSICIAN: PADMINI LIZARRAGA RESOURCE: PADMINI LIZARRAGA REASON FOR APPOINTMENT 1. PER DR Irizarry HISTORY OF PRESENT ILLNESS HISTORY OF PRESENT ILLNESS: PAIN THE PATIENT DESCRIBES THE PAINDURING THE LAST MONTH SEVERITY - PAIN SCORE OF10/10 53 YR OLD MALE HERE FOR F/U FOR WORKR RELARED BACK INJURY AND DX WITH POST LAMINECTOMY SYNDROME.HE WAS PRESCRIBED BUTRANS [address] WILSON, BUT SAYS IT CAUSED ITCHYING OF HIS SKIN AND HE STOPPED IT.HE CURRENTLY USES GABAPENTIN 100MG X3 /DAY A WITH IBRUPROFEN 600MG WITH MINIMAL EFFECT.HE SAYS HIS PAIN IS 10/10 AND FEELS IT IS CONSTANT. HE WANTS TO DISCUSS OTHER PAIN MEDICATION OPTIONS. FALL RISK SCREENING: SCREENING :NO FALLS REPORTED IN THE LAST YEAR CURRENT MEDICATIONS TAKING GABAPENTIN 100 MG CAPSULE 1 CAPSULE ORALLY THREE TIMES DAILY TAKING ACETAMINOPHEN EXTRA STRENGTH 500 MG TABLET 2 TABLETS NEEDED ORALLY FOR PAIN EVERY 6 HRS MDD6 TAKING IBUPROFEN 600 MG TABLET 1 TABLET WITH FOOD OR MILK NEEDED ORALLY THREE TIMES A DAY NOT-TAKING BUPRENORPHINE HCL 300 MCG FILM 1 FILM TO THE GUM BUCALLY EVERY 12 HRS FOR CHRONIC PAIN MDD-2 NOT-TAKING CELEBREX 200 MG CAPSULE 1 CAPSULE WITH FOOD ORALLY ONCE A DAY NOT-TAKING BUTRANS 5 MCG/HR PATCH WEEKLY 1 PATCH TO SKIN TRANSDERMAL 1 PER WEEK NOT-TAKING DULOXETINE HCL 30 MG CAPSULE DELAYED RELEASE PARTICLES 1 CAPSULE ORALLY BID NOT-TAKING VALIUM 5 MG TABLET 1 TABLET NEEDED ORALLY TAKE 1 TAB 1 HR BEFORE MRI AND 1 TABE ON ARRIVAL. MDD-2 NOT-TAKING BELBUCA 300 MCG 300 MCG FILM 1 FILM BUCCAL Q12H MDD=2 NOT-TAKING NORTRIPTYLINE HCL 10 MG CAPSULE 1 CAPSULE ORALLY ONCE A DAY MEDICATION LIST REVIEWED AND RECONCILED WITH THE PATIENT PAST MEDICAL HISTORY CHRONIC NECK AND BACK - FOLLOWS WITH PAIN CLINIC LARGE MELANOMA POSTERIOR SCALP/NECK IN 2013 - DR ESCOBAR IN [place]. EXCISED. 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 2DAUGHTER(S) - HEALTHY. 1 BROTHER FROM HEART ATTACK. SOCIAL HISTORY GENERAL: TOBACCO USE ARE YOU A:CURRENT SMOKER ARE YOU INTERESTED IN QUITTING?NOT READY TO QUIT COUNSELED THE PATIENT ON SMOKING EFFECTS, EDUCATION HNMWNAWL11/28/2019 HOW MANY CIGARETTES A DAY DO YOU SMOKE?11-20 HOW SOON AFTER YOU WAKE UP DO YOU SMOKE YOUR FIRST CIGARETTE?6-30 MIN HOW OFTEN DO YOU SMOKE CIGARETTES?EVERY DAY PATIENT COUNSELED ON THE DANGERS OF TOBACCO USE AND URGED TO QUIT:02/18/2019 LATEX QUESTIONNAIRE LATEX ALLERGY : HAVE YOU EVER DEVELOPED ANY TYPE OF REACTION AFTER HANDLING LATEX PRODUCTS SUCH RUBBER GLOVES, CONDOMS, DIAPHRAGMS, BALLOONS, SOCKS, OR UNDERWEAR?NO LATEX ALLERGY : HAVE YOU EVER DEVELOPED ANY TYPE OF REACTION DURING OR AFTER DENTAL APPOINTMENT, VAGINAL/RECTAL EXAMINATION, SURGICAL PROCEDURE, OR ANY OTHER EXPOSURE?NO DATE ASKED : 02/18/2019 LATEX RISK : HAVE YOU EVER HAD ANY DIFFICULTY BREATHING OR HIVES AFTER EATING OR HANDLING ANY FRUITS, OR VEGETABLES; SUCH KIWI, BANANAS, STONE FRUITS, OR CHESTNUTSNO LATEX RISK : DO YOU HAVE A PREVIOUS PERSONAL HISTORY OF MORE THAN NINE SURGERIES, SPINA BIFIDA, OR REPEATED CATHERTIZATIONS? NO LATEX RISK : ARE YOU FREQUENTLY EXPOSED TO LATEX PRODUCTS IN YOUR OCCUPATION?NO ALCOHOL SCREENING DID YOU HAVE A DRINK CONTAINING ALCOHOL IN THE PAST YEAR?YES HOW OFTEN DID YOU HAVE SIX OR MORE DRINKS ON ONE OCCASION IN THE PAST YEAR?NEVER (0 POINTS) HOW MANY DRINKS DID YOU HAVE ON A TYPICAL DAY WHEN YOU WERE DRINKING IN THE PAST YEAR?3 OR 4 (1 POINT) HOW OFTEN DID YOU HAVE A DRINK CONTAINING ALCOHOL IN THE PAST YEAR?FOUR OR MORE TIMES A WEEK (4 POINTS) POINTS5 INTERPRETATIONPOSITIVE RECREATIONAL DRUG USE DRUG USE?YES OCCASIONAL MARIJUANA CAFFEINE CAFFEINE USE?YES 2 CUPS COFFEE/DAY SEXUAL HX HAD SEX IN THE LAST 12 MONTHS (VAGINAL, ORAL, OR ANAL)?NO HAVE YOU EVER HAD AN STD?NO HIV / HEP-C SCREENING HIV TEST OFFERED TO PATIENT:YES DATE OFFERED:02/18/2019 TEST ACCEPTED:YES HEP-C TEST OFFERED TO PATIENT:YES DATE OFFERED:02/18/2019 TEST ACCEPTED:YES BROCHURE PROVIDED TO PATIENTNO ORTHODOXY [id number] OTHER NO VOODOO BELIEFS THAT WOULD IMPACT HEALTH CARE. LANGUAGE LANGUAGES SPOKEN:[place] EDUCATION LEVEL OF EDUCATION:FINISHED HIGH SCHOOL LEARNING BARRIERS / SPECIAL NEEDS BARRIERS TO LEARNING?NO HEARING IMPAIRED?NO VISION IMPAIRED?YES COGNITIVELY IMPAIRED?NO :CORRECTIVE LENSES READING READINESS TO LEARN?YES LEARNING PREFERENCES?YES :DEMONSTRATION/VERBAL INSTRUCTION LEARNING CAPABILITIES PRESENT?YES EMOTIONAL BARRIERS?NO SPECIAL DEVICES?YES :WALKER, WHEELCHAIR, OTHER [employer] CLERK NEEDED?NO OCCUPATION: DISABLED. DIET: REGULAR. EXERCISE: NONE. MARITAL STATUS: . OTHERS AT HOME: NONE. PAIN CLINIC PFS, CLERGY, PUBLIC HEALTH REFERRALS PFS REFERRAL NEEDED?NO CLERGY REFERRAL NEEDED?NO PUBLIC HEALTH REFERRAL NEEDED?NO WAS THE PROVIDER NOTIFIED OF ANY PERTINENT INFO?NO HAS THE PATIENT BEEN EDUCATED REGARDING HIS/HER PLAN OF CARE?YES HAS THE PATIENT BEEN EDUCATED REGARDING PAIN, THE RISK FOR PAIN, THE IMPORTANCE OF EFFECTIVE PAIN MANAGEMENT, AND THE PAIN ASSESSMENT PROCESS?YES HOUSING: RENTS APARTMENT. ADVANCE DIRECTIVE ADVANCE DIRECTIVE DISCUSSED WITH PATIENT:YES PT. DECLINES INFORMATION HOSPITALIZATION/MAJOR DIAGNOSTIC PROCEDURE SURGERY RELATED UPSTATE-CONCUSSION OBSERVATION REVIEW OF SYSTEMS REVIEWED BY: PROVIDER: SHANICE Gray CONSTITUTIONAL: ANY CHANGE IN YOUR MEDICAL CONDITION? NO . CHILLS NO . FEVER NO . INFECTION: DO YOU HAVE NEW INFECTIONS? NO . DO YOU HAVE HISTORY OF MRSA? NO . MUSCULOSKELETAL: ANY NEW PATTERNS OF PAIN OR NUMBNESS? NO . GASTROENTEROLOGY: ANY NEW CHANGE IN BOWEL CONTROL? NO . GENITOURINARY: ANY NEW CHANGE IN BLADDER CONTROL? NO . IS THERE A CHANCE YOU COULD BE ? NO . HEMATOLOGY/LYMPH: DO YOU TAKE ANY BLOOD THINNERS? (FOR EXAMPLE- COUMADIN, PLAVIX, AGGRENOX, PLATEL, PRADAXA, OR XARELTO) NO . WHEN WAS YOUR LAST DOSE? DATE: TIME: . NEUROLOGY: HAVE YOU FALLEN IN THE PAST 12 MONTHS? YES, FELL YESTERDAY FROM PAIN AND WEAKNESS, PT DENIES INJURIES . ANY NEW EXTREMITY NUMBNESS OR WEAKNESS? NO . CARDIOLOGY: DO YOU HAVE A PACEMAKER OR DEFIBRILLATOR? NO . RESPIRATORY: HAVE YOU BEEN SICK IN THE PAST WEEK? NO . FEVER NO . FLU LIKE SYMPTOMS? NO . COUGH NO . INTEGUMENTARY: DO YOU HAVE ANY RASHES OR OPEN SORES? NO . ALLERGIC/IMMUNO: ARE YOU ALLERGIC TO IV DYE? NO . ANY NEW ALLERGIES? NO . PSYCHIATRIC: DO YOU HAVE THOUGHTS OF HURTING YOURSELF OR SOMEONE ELSE? NO . ARE YOU ABUSED, NEGLECTED, OR IN AN UNSAFE ENVIRONMENT? NO . ENDOCRINOLOGY: ARE YOU DIABETIC? NO . OTHER: DO YOU NEED ANY PRESCRIPTIONS? YES ,TO DISCUSS . IF YES, PLEASE LIST: ____ . ANY NEW PROBLEMS WITH YOUR MEDICATIONS? YES, PT STATES HE DEVELOPED A STOMACH ULCER FROM CELEBREX, STOPPED RX AND ITHING FROM BUTRANS PATCH STOPPED RX . WHEN DID YOU LAST EAT? ____ . WHEN DID YOU LAST DRINK? ____ . WHAT DID YOU LAST DRINK? ____ . NAME OF PERSON DRIVING YOU HOME? ____ . DO YOU HAVE ANY OTHER QUESTIONS OR CONCERNS NO . VITAL SIGNS WT 134 LBS, HT 71 IN, BMI 18.69 INDEX, BP 172/106 MM HG, REPEAT BP 190/90MANUAL, HR 80 /MIN, RR 18 /MIN, TEMP 97.2 F, OXYGEN SAT % 98%, NA INITIALS SC 11:43, REVIEWED BY: SEEMA TAVARES AWARE OF B/P. EM. EXAMINATION GENERAL EXAMINATION: GENERAL APPEARANCE: APPEARS OLDER THAN STATED AGE, ANTALGIC GAIT, CHRONICALLY ILL APPEARING. LUNGS:CLEAR TO AUSCULTATION BILATERALLY, NO WHEEZES, RHONCHI, RALES. HEART:NO MURMURS, REGULAR RATE AND RHYTHM. BACK: SLR POSITIVE RIGHT SIDE. ASSESSMENTS LUMBAR POST-LAMINECTOMY SYNDROME - M96.1 (PRIMARY) TREATMENT LUMBAR POST-LAMINECTOMY SYNDROME START TYLENOL WITH CODEINE #3 TABLET, 300-30 MG, 1 TABLET, ORALLY, TWICE A DAY MDD 2, 30 DAYS, 60, REFILLS 0 CLINICAL NOTES: CONSULTATION DONE WITH DR. WILSON.ISTOP REGISTRY REVIEWED AND DEMONSTRATES COMPLLIANCE. (REF #[id number] ) BRINGS IN MEDICATIONS WHICH IS APPROPRIATE FOR WHAT WAS DISPENSED. RECENT URINE TOXICOLOGY REVIEWED. NO UNAUTHORIZED MEDICATIONS. NO ILLICIT SUBSTANCES AND PRESCRIBED MEDICATIONS WERE PRESENT. , RISKS AND BENEFITS OF NARCOTIC/OPIOD MEDICATIONS WERE REVIEWED WITH PATIENT - THIS INCLUDES BUT IS NOT LIMITED TO RISK OF DEPENDANCE/DEVELOPMENT OF ADDICTION, MOOD DISTURBANCE AND DEPRESSION, OSTEOPOROSIS, HORMONAL AND LABIDAL CHANGES, RESPIRATORY DEPRESSION AND . PATIENT IS ADVISED NOT TO DRIVE OR DRINK ALCOHOL WHILE ON THESE MEDICATIONS. PREVENTIVE MEDICINE PAIN CLINIC TEACHING: MEDICATIONS TYLENOL #3 HANDOUT PRINTED, REVIEWED AND GIVEN TO PT. EM . PROCEDURE CODES FA211 ESTABILISHED PATIENT [facility] CHARGE DISPOSITION & COMMUNICATION FOLLOW UP REASON: 03/17/19 ELECTRONICALLY SIGNED BY NERISSA SMALLS ON 03/09/2019 AT 10:30 AM EDT DISCLAIMER : THIS IS A VISIT SUMMARY EXTRACTED FROM THE [employer] CHART. IT IS NOT A COPY OF THE [employer] PROGRESS NOTE. MCKENZIE
== END ==
LOC: M PAIN 11:00
PROVIDERS: ATTEND Nurse Practitioner Family
DX: M96.1 Postlaminectomy syndrome, not elsewhere classified (principal); I10 Essential (primary) hypertension; F41.9 Anxiety disorder, unspecified; F32.9 Major depressive disorder, single episode, unspecified; F17.210 Nicotine dependence, cigarettes, uncomplicated; Z79.899 Other long term (current) drug therapy; Z88.5 Allergy status to narcotic agent

== ENCOUNTER → 2019-02-18 | Outpatient (REF) | payer MEDICARE ==
[2019-02-18 13:46] LABS: BASO % 0.4 % (0.0-1.0); EOS # 0.1 10^3/uL (0.0-0.50); EOS % 1.3 % (0.0-3.0); HEMATOCRIT 46.4 % (42.0-52.0); HEMOGLOBIN 15.9 g/dl (13.5-17.5); LYMPH # 2.5 10^3/uL (1.5-4.5); LYMPH % 37.1 % (24.0-44.0); MEAN CORPUSCULAR HGB CONC 34.3 g/dl (32.0-36.5); MEAN CORPUSCULAR VOLUME 96.3 fl (80.0-96.0); MONO # 0.6 10^3/uL (0.0-0.8); MONO % 8.2 % (0.0-5.0); NEUTROPHILS # 3.5 10^3/uL (1.8-7.7); NEUTROPHILS % 52.7 % (36.0-66.0); PLATELET COUNT, AUTOMATED 234 10^3/uL (150-450); RED BLOOD COUNT 4.82 10^6/uL (4.30-6.10); WHITE BLOOD COUNT 6.7 10^3/uL (4.0-10.0)
[2019-02-18 13:49] LABS: OSMOLALITY SERUM 305 MOSM/KG (275-295)
[2019-02-18 13:56] LABS: ALT/SGPT 17 U/L (12-78); BILIRUBIN,TOTAL 0.5 MG/DL (0.2-1.0); BLOOD UREA NITROGEN 14 MG/DL (7-18); CALCIUM LEVEL 8.5 MG/DL (8.5-10.1); CARBON DIOXIDE LEVEL 27 MEQ/L (21-32); CHLORIDE LEVEL 110 MEQ/L (98-107); CREATININE FOR GFR 0.89 MG/DL (0.70-1.30); GLOMERULAR FILTRATION RATE > 60.0 (>56); GLUCOSE, FASTING 61 MG/DL (70-100); LDH LACTATE DEHYDROGENASE 131 U/L (87-241); POTASSIUM SERUM 3.7 MEQ/L (3.5-5.1); SODIUM LEVEL 146 MEQ/L (136-145); TOTAL PROTEIN 6.7 GM/DL (6.4-8.2)
== END ==
LOC: M SFHCPLAZ 10:08
PROVIDERS: ATTEND Family Medicine
DX: K52.9 Noninfective gastroenteritis and colitis, unspecified (principal)
CPT/HCPCS: 36415; 80053; 83615; 83930; 85025; G0463

== ENCOUNTER → 2020-06-13 | Outpatient (CLI) | payer MEDICARE ==
[2020-06-13 10:32] LABS: BASO % 0.4 % (0.0-1.0); EOS # 0.1 10^3/uL (0.0-0.5); EOS % 1.7 % (0.0-3.0); HEMATOCRIT 46.4 % (42.0-52.0); HEMOGLOBIN 15.6 g/dl (13.5-17.5); LYMPH % 37.3 % (24.0-44.0); MEAN CORPUSCULAR HEMOGLOBIN 33.6 pg (27.0-33.0); MEAN CORPUSCULAR HGB CONC 33.6 g/dl (32.0-36.5); MONO # 0.5 10^3/uL (0.0-0.8); MONO % 9.5 % (0.0-5.0); NEUTROPHILS # 2.7 10^3/uL (1.5-8.5); NEUTROPHILS % 50.9 % (36.0-66.0); PLATELET COUNT, AUTOMATED 208 10^3/uL (150-450); RED BLOOD COUNT 4.64 10^6/uL (4.30-6.10); WHITE BLOOD COUNT 5.3 10^3/uL (4.0-10.0)
== END ==
LOC: M LAB 09:32
DX: R63.6 Underweight (principal); Z79.899 Other long term (current) drug therapy

== ENCOUNTER → 2021-09-27 | Outpatient (CLI) | payer MEDICARE ==
[2021-09-27 10:37] LABS: BASO % 0.3 % (0.0-1.0); EOS # 0.1 10^3/uL (0.0-0.5); EOS % 1.8 % (0.0-3.0); HEMATOCRIT 48.9 % (42.0-52.0); HEMOGLOBIN 15.9 g/dl (13.5-17.5); LYMPH # 1.5 10^3/uL (1.5-5.0); LYMPH % 39.7 % (24.0-44.0); MEAN CORPUSCULAR HEMOGLOBIN 34.3 pg (27.0-33.0); MEAN CORPUSCULAR HGB CONC 32.5 g/dl (32.0-36.5); MEAN CORPUSCULAR VOLUME 105.6 fl (80.0-96.0); MONO # 0.4 10^3/uL (0.0-0.8); MONO % 11.2 % (2.0-8.0); NEUTROPHILS # 1.8 10^3/uL (1.5-8.5); NEUTROPHILS % 46.7 % (36.0-66.0); PLATELET COUNT, AUTOMATED 212 10^3/uL (150-450); RED BLOOD COUNT 4.63 10^6/uL (4.30-6.10); WHITE BLOOD COUNT 3.9 10^3/uL (4.0-10.0)
[2021-09-27 11:07] LABS: ALBUMIN 3.3 GM/DL (3.2-5.2); ALT/SGPT 26 U/L (12-78); BILIRUBIN,TOTAL 0.4 MG/DL (0.2-1.0); BLOOD UREA NITROGEN 10 MG/DL (7-18); CALCIUM LEVEL 8.5 MG/DL (8.5-10.1); CARBON DIOXIDE LEVEL 29 MEQ/L (21-32); CHLORIDE LEVEL 107 MEQ/L (98-107); CREATININE FOR GFR 0.96 MG/DL (0.70-1.30); GLOMERULAR FILTRATION RATE > 60.0 (>56); GLUCOSE, FASTING 106 MG/DL (70-100); LIPASE 205 U/L (73-393); POTASSIUM SERUM 4.6 MEQ/L (3.5-5.1); SODIUM LEVEL 141 MEQ/L (136-145); TOTAL PROTEIN 6.1 GM/DL (6.4-8.2)
== END ==
LOC: M PLALAB 08:22
PROVIDERS: ATTEND Student in an Organized Health Care Education/Training Program
DX: R10.12 Left upper quadrant pain (principal)

== ENCOUNTER 2022-04-17 20:40 | Emergency (ER) | payer MEDICARE ==
[~2022-04-17] VITALS: Ht 180.3 cm; Wt 59.1 kg
[2022-04-17 20:56] VITALS: BP 157/98
[2022-04-17] MEDS ORDERED: HYDR-4517 (21:02)
[2022-04-17] MEDS ORDERED: SPIR-10 (21:02)
[2022-04-17] MEDS ORDERED: PANT40TA29 (21:02)
[2022-04-17] MEDS ORDERED: ZOLP5TAB (21:02)
[2022-04-17] MEDS ORDERED: FURO20TA2 (21:02)
== END 2022-04-17 22:55 | disposition left against medical advice (07) ==
LOC: M ED 20:40
DX: Z53.29 Procedure and treatment not carried out because of patient's decision for other reasons (principal)

== ENCOUNTER → 2022-05-03 | Outpatient (REF) | payer MEDICARE ==
[~2022-05-03] MED LIST changes: +ALBU2.5V10 INH; -ALBU83IN INH; +FURO20TA2; +HYDR-4517; +PANT40TA29; +SPIR-10; +ZOLP5TAB
[2022-05-03 18:09] LABS: AMORPHOUS SEDIMENT SMALL (NEGATIVE); APPEARANCE, URINE CLEAR (CLEAR); BACTERIA, URINE AUTO NEGATIVE (NEGATIVE); BILIRUBIN, URINE AUTO NEGATIVE (NEGATIVE); BLOOD, URINE BLOOD NEGATIVE (NEGATIVE); COLOR, URINE AMBER (YELLOW); GLUCOSE, URINE (UA) AUTO NEGATIVE (NEGATIVE); KETONE, URINE AUTO TRACE mg/dL (NEGATIVE); LEUKOCYTE ESTERASE, URINE AUTO NEGATIVE (NEGATIVE); MUCUS, URINE SMALL (NEGATIVE); NITRITE, URINE AUTO NEGATIVE (NEGATIVE); PROTEIN, URINE AUTO NEGATIVE (NEGATIVE); RBC, URINE AUTO 0 /HPF (0-3); SPECIFIC GRAVITY URINE AUTO 1.033 (1.002-1.035); SQUAMOUS EPITHELIAL CELL UR AU 0 /HPF (0-6); UROBILINOGEN, URINE AUTO 0.2 mg/dL (0.0-2.0); WBC, URINE AUTO 1 /HPF (0-3)
== END ==
LOC: M SFHCPLAZ 16:42
PROVIDERS: ATTEND Student in an Organized Health Care Education/Training Program
DX: R39.198 Other difficulties with micturition (principal)

== ENCOUNTER → 2022-05-06 | Outpatient (REF) | payer MEDICARE | LOC: M SFHCPLAZ 11:17 | PROVIDERS: ATTEND Family Medicine | DX: R03.0 Elevated blood-pressure reading, without diagnosis of hypertension (principal) ==

== ENCOUNTER 2025-04-04 17:50 | Emergency (ER) | payer MEDICARE ==
[~2025-04-04] VITALS: Ht 177.8 cm; Wt 56.0 kg
[2025-04-04 18:06] VITALS: BP 135/94; TEMP 96.7; O2SAT 96
[2025-04-04] MEDS ORDERED: NS (Normal Saline) 0.9% 1,000 ML IV ONE (18:25)
== END 2025-04-04 19:16 | disposition left against medical advice (07) ==
LOC: EDBD 17:50 → M ED 17:50
DX: F10.120 Alcohol abuse with intoxication, uncomplicated (principal); F19.10 Other psychoactive substance abuse, uncomplicated; R00.0 Tachycardia, unspecified; I44.5 Left posterior fascicular block; F41.9 Anxiety disorder, unspecified; F32.A Depression, unspecified; F17.210 Nicotine dependence, cigarettes, uncomplicated; F12.10 Cannabis abuse, uncomplicated; Z88.1 Allergy status to other antibiotic agents; Z88.5 Allergy status to narcotic agent; Z88.8 Allergy status to other drugs, medicaments and biological substances; Z79.51 Long term (current) use of inhaled steroids; Z79.899 Other long term (current) drug therapy; Z53.9 Procedure and treatment not carried out, unspecified reason